=== PATIENT | female | born 1965 | race Hispanic/Latino ===

== ENCOUNTER → 2023-09-15 | Day surgery (SDC) | payer BC ==
[~2023-09-15] MED LIST: LIDOCAINE HCL 2% LOCAL INJ 5 ML SDV VIAL INJ ONE; MIDAZOLAM HCL 2 MG/2 ML VIAL ONE; PROPOFOL IV EMULSION 10 MG/ML 20 ML VIAL ONE
[2023-09-15] MEDS: LACTATED RINGER'S 1,000 ML ONE (11:27)
[2023-09-15 14:10] VITALS: BP 121/65; PULSE 62; RESP 14; O2SAT 100
== END | disposition home or self-care (01) ==
LOC: OR 11:15
PROVIDERS: ATTEND Internal Medicine Gastroenterology
DX: Z12.11 Encounter for screening for malignant neoplasm of colon (principal); K62.5 Hemorrhage of anus and rectum; K57.30 Diverticulosis of large intestine without perforation or abscess without bleeding; K64.8 Other hemorrhoids; K76.0 Fatty (change of) liver, not elsewhere classified; Z88.0 Allergy status to penicillin; Z01.810 Encounter for preprocedural cardiovascular examination; Z68.41 Body mass index [BMI] 40.0-44.9, adult; Z87.898 Personal history of other specified conditions; Z80.0 Family history of malignant neoplasm of digestive organs
CPT/HCPCS: 45378; 93005; J2001; J2250; J2704; J7121